=== PATIENT | male | born 1960 | race African-American/Black ===

== ENCOUNTER 2024-10-02 11:06 | Emergency (ER) | payer MEDICAID, OTHER ==
[~2024-10-02] VITALS: Ht 175.3 cm; Wt 68.0 kg
[~2024-10-02 11:06] MED LIST: BACTRIM DS; CLIN300C3; HYDR-3927
[2024-10-02 11:13] VITALS: BP 128/70; PULSE 60; RESP 16; TEMP 98.1; O2SAT 99
[2024-10-02] MEDS ORDERED: KETOROLAC 30MG/ML VIAL IM STA (11:37)
[2024-10-02] MEDS ORDERED: IBUP-2029 MT (13:09)
== END 2024-10-02 13:47 | disposition home or self-care (01) ==
LOC: ER 11:15
DX: G89.29 Other chronic pain (principal); M54.9 Dorsalgia, unspecified; Z88.0 Allergy status to penicillin
CPT/HCPCS: 72070; 72100; 99284